=== PATIENT | male | born 1995 | race Caucasian/White ===

== ENCOUNTER → 2019-04-02 13:08 | Outpatient (BNVA) | payer MEDICAID, SELFPAY | PROVIDERS: PCP Family Medicine; Visit Provider Nurse Practitioner | DX: F31.73 Bipolar disorder, in partial remission, most recent episode manic (principal) | CPT/HCPCS: 99213 ==

== ENCOUNTER 2019-04-13 15:07 | Emergency (ER) | payer MEDICAID, SELFPAY ==
[2019-04-13 15:09] VITALS: BP 129/79; PULSE 68; RESP 16; TEMP 36.6; O2SAT 97; BMI 26.1
--- NOTE | 2019-04-13 15:37 | XR_ITS ---
WS: [id number] XR facial bones <3V 66576 REASON FOR EXAM: trauma FINDINGS: The orbits are normal there is no fractures of the rims of the orbits. The zygoma zygomatic arches are normal. In the lateral projection the mandible appears to be normal. The frontal region of the skull appear to be normal. No air-fluid levels in the paranasal sinuses. XR/XR facial bones <3V 49364 IMPRESSION: Negative facial bones for fractures.
--- NOTE | 2019-04-13 15:37 | XR_ITS ---
WS: [id number] XR skull <4V 25657 REASON FOR EXAM: trauma FINDINGS: The pineal gland is calcified in seen in normal position. The outer and inner tables of the skull are intact. No fractures are seen in the skull area. XR/XR skull <4V 65854 IMPRESSION: Negative skull for fractures.
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
[2019-04-13 15:40] VITALS: O2SAT 97
--- NOTE | 2019-04-13 16:11 | PC.NURSE ---
pt back to room from CT with stretcher by tech
[2019-04-13 17:33] VITALS: BP 129/73; PULSE 109; RESP 19; O2SAT 94
[2019-04-13 17:47] VITALS: BP 123/78; PULSE 76; RESP 16; O2SAT 98
== END 2019-04-13 17:35 | disposition home or self-care (01) ==
PROVIDERS: Emergency Provider Nurse Practitioner Family
DX: S01.101A Unspecified open wound of right eyelid and periocular area, initial encounter (principal); F84.0 Autistic disorder; X58.XXXA Exposure to other specified factors, initial encounter
CPT/HCPCS: 12013; 70140; 70250; 99283

== ENCOUNTER → 2019-07-23 08:11 | Outpatient (BNVA) | payer MEDICAID, SELFPAY | PROVIDERS: Visit Provider Nurse Practitioner | DX: F31.73 Bipolar disorder, in partial remission, most recent episode manic (principal) | CPT/HCPCS: 99213 ==

== ENCOUNTER → 2020-01-18 07:34 | Outpatient (BNVA) | payer MEDICAID, SELFPAY | PROVIDERS: Visit Provider Nurse Practitioner | DX: F31.73 Bipolar disorder, in partial remission, most recent episode manic (principal) | CPT/HCPCS: 99214 ==

== ENCOUNTER → 2020-07-18 07:35 | Outpatient (BNVA) | payer MEDICAID, SELFPAY | PROVIDERS: Visit Provider Nurse Practitioner | DX: F31.73 Bipolar disorder, in partial remission, most recent episode manic (principal) | CPT/HCPCS: 99214 ==

== ENCOUNTER → 2020-07-31 11:22 | Outpatient (BNVA) | payer MEDICAID, SELFPAY | PROVIDERS: Visit Provider Nurse Practitioner | DX: F84.0 Autistic disorder (principal) | CPT/HCPCS: 99215 ==

== ENCOUNTER → 2020-08-07 08:14 | Outpatient (BNVA) | payer MEDICAID, SELFPAY | PROVIDERS: Visit Provider Nurse Practitioner | DX: F84.0 Autistic disorder (principal) | CPT/HCPCS: 80053; 81003; 85025; 99214 ==

== ENCOUNTER → 2020-08-21 07:07 | Outpatient (BNVA) | payer MEDICAID, SELFPAY | PROVIDERS: Visit Provider Nurse Practitioner | DX: F31.73 Bipolar disorder, in partial remission, most recent episode manic (principal); F84.0 Autistic disorder | CPT/HCPCS: 99214 ==

== ENCOUNTER 2020-09-01 07:55 | Outpatient (CLI) | payer MEDICAID, SELFPAY ==
[2020-09-01 09:20] LABS: Valproic Acid Level 44.6 ug/mL (50-100)
== END 2020-09-01 07:56 | disposition home or self-care (01) ==
PROVIDERS: Nurse Practitioner; PCP Nurse Practitioner; Visit Provider Psychiatry & Neurology Psychiatry
DX: F31.73 Bipolar disorder, in partial remission, most recent episode manic (principal)
CPT/HCPCS: 36415; 80164

== ENCOUNTER → 2020-09-20 07:02 | Outpatient (BNVA) | payer MEDICAID, SELFPAY | PROVIDERS: PCP Nurse Practitioner; Visit Provider Nurse Practitioner | DX: F31.73 Bipolar disorder, in partial remission, most recent episode manic (principal); F84.0 Autistic disorder | CPT/HCPCS: 99214 ==

== ENCOUNTER 2021-04-04 21:11 | Emergency (ER) | payer MEDICAID, SELFPAY ==
[2021-04-04 21:18] VITALS: BP 132/83; PULSE 115; RESP 20; TEMP 36.7; O2SAT 99; BMI 27.0
--- NOTE | 2021-04-04 21:23 | ED_ITS ---
HPI - Skin/Abscess/Foreign Bdy General: Chief complaint: Skin/Abscess/Foreign Body Stated complaint: lump on L arm Time Seen by Provider: 04/04/21 21:23 History of Present Illness: 26-year-old male patient comes in today with complaints redness to the left upper arm. Patient had been hospitalized last week and has had IVs and restraints to the extremity. Today caregivers noted some redness and tenderness to the left upper arm. They were concerned there may be an abscess there. Patient was placed on Cipro due to some blood being in his urine yesterday. The redness was not noted to the upper arm until today. Caregivers report no fever. Patient does not add anything to history due to his condition. Review of Systems General: Reports: 10 or more systems reviewed and unremarkable except in HPI and below Skin/Breast: Reports: erythema PFSH ED PFSH: Medical History (Updated 04/04/21 @ 21:45 by NOLBERTO De La Cruz) Autism Bipolar disorder, in partial remission, most recent episode manic Eustachian tube dysfunction GERD (gastroesophageal reflux disease) Nonverbal UTI (urinary tract infection) Social History Smoking and tobacco status: never smoked Alcohol intake: never Caregiver/support person: Yes Lives independently: No Household members: family Marital status: Single Number of children: 0 Number of grandchildren: 0 service: No Current occupational status: disabled Physical Exam Const: COMMON NORMALS: alert HENMT: COMMON NORMALS: atraumatic HEAD & SCALP: atraumatic Resp: COMMON NORMALS: normal respiratory effort Cardio: COMMON NORMALS: regular rate and regular rhythm RATE: regular rate RHYTHM: regular rhythm Extremity: LEFT UPPER EXTREMITY: Yes upper arm (Large area of redness about 11 cm, with some central induration) Left upper arm: Yes inspection, Yes palpation and Yes neurovascular exam Neuro: SENSORIUM/ORIENTATION: Yes alert Psych: COMMON NORMALS: cooperative Skin: NARRATIVE SKIN EXAM: Patient has an area of erythema to the left upper arm about 11 cm ovoid in shape. Central in the area of redness there is a 4 cm area of induration. No fluctuance is noted in the tissue. RASHES: rashes noted (Left upper arm) Course Vital Signs: Vital signs: Vital Signs Temperature 98.1 F 02/23/22 21:18 Pulse Rate 115 H 04/04/21 21:18 Respiratory Rate 20 H 04/04/21 21:18 Blood Pressure 132/83 04/04/21 21:18 Pulse Oximetry 99 04/04/21 21:18 MDM - Skin/Abscess/Foreign Bdy Medicial Decision Making 26-year-old male patient comes in for redness and erythema to the left upper extremity. Patient had been in the hospital last week for altered mental status and was found to have an adverse drug reaction to some valproic acid that had caused some liver abnormalities and elevated ammonia. Medications were stopped and patient seemed to be doing a lot better and has been discharged to home. Family had noted some increased redness to the left upper extremity. On exam we note erythema and some central induration. Differential diagnosis includes a thrombophlebitis, cellulitis, abscess. Ultrasound of the extremity suggested some edema in the area of redness with no collection of fluid suggesting abscess at this time. Patient was on Cipro for some concerns of blood in the urine. We will stop the Cipro and put patient on clindamycin 300 mg 4 times a day for the next 7 days. Patient was also given 1 g of Rocephin in the ER. Caregivers reported understanding of plan and need for follow-up or return to the ER. Discharge Plan Discharge Patient Disposition: Home Clinical Impression: Cellulitis Condition: Stable Prescriptions: New clindamycin HCl 300 mg capsule 300 mg PO Q6H 7 Days Qty: 28 0RF No Action Equetro 300 mg capsule, ER multiphase 12 hr 300 mg PO DAILY 0RF Rx Instructions: Dispense brand name Equetro benztropine 1 mg tablet 1 mg PO TID 0RF chlorpromazine 100 mg tablet See Rx Instructions PO TID 0RF Rx Instructions: 1 tablet in the morning; 1 tablet at 2pm, and 1.5 tablet at night. clonidine HCl 0.1 mg tablet 0.1 mg PO .q6hour 0RF ciprofloxacin HCl 750 mg tablet 750 mg PO BID Qty: 20 0RF cetirizine-pseudoephedrine 5-120 mg tablet extended release 12 hr 1 tab PO BID Qty: 60 5RF omeprazole 20 mg capsule,delayed release(DR/EC) 20 mg PO BID Qty: 60 5RF clonazepam 0.5 mg tablet 0.5 mg PO BID Qty: 60 5RF Discharge Orders: Discharge ED (Routine); Ordered 04/04/21 Ordered By: Terrance Dawson Referrals: Lico Nichols MD [Primary Care Provider] - Discharge Diet: Usual diet Discharge Activity: Increase activity as tolerated Patient Instructions: Cellulitis (ED) Activity Restrictions/Additional Instructions: Antibiotics as directed. Monitor for fever greater than 100.4, Encourage plenty of fluids with medications. 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
--- NOTE | 2021-04-04 21:33 | USR_ITS ---
PROCEDURE INFORMATION: Exam: US Left Non-Vascular Joint or Other Extremity Structure Exam date and time: 04/04/2021 9:33 PM Age: 26 years old Clinical indication: Mass or lump and swelling; Arm, upper; Left; Additional info: Left upper arm, rule out abscess TECHNIQUE: Imaging protocol: Left US joint or other nonvascular extremity structure or structures. Real-time ultrasound with image documentation. Limited study. Exam focused on the upper extremity in the region of clinical interest. COMPARISON: No relevant prior studies available. FINDINGS: Soft tissues: Subcutaneous soft tissue edema. No focal organized fluid collection seen. US/US soft tissue/extremity 13075 IMPRESSION: Soft tissue edema changes without focal drainable abscess seen.
[2021-04-04] MEDS: clindamycin 150 mg Capsule 300 MG PO (22:32)
[2021-04-04] MEDS: cefTRIAXone 1,000 mg SDV 1000 MG IM (22:32)
[2021-04-04] MEDS: lidocaine 1% INJ 20 mL 2.1 ML INJECTION (22:33)
[2021-04-04 22:38] VITALS: BP 129/79; PULSE 105; RESP 18; TEMP 36.7; O2SAT 99
== END 2021-04-04 22:41 | disposition home or self-care (01) ==
PROVIDERS: Emergency Provider Nurse Practitioner Family; PCP Family Medicine Adult Medicine
DX: L03.114 Cellulitis of left upper limb (principal); F84.0 Autistic disorder
CPT/HCPCS: 76882; 96372; 99283; J0696

== ENCOUNTER 2021-04-12 13:17 | Outpatient (CLI) | payer MEDICAID, SELFPAY ==
[2021-04-12 14:22] LABS: Ammonia 53 umol/L (16-60)
[2021-04-12 14:38] LABS: Lithium 0.9 mmol/L (0.6-1.2)
== END 2021-04-12 13:18 | disposition home or self-care (01) ==
LOC: LAB 13:19
PROVIDERS: PCP Family Medicine Adult Medicine; Visit Provider Family Medicine Adult Medicine
DX: Z13.6 Encounter for screening for cardiovascular disorders (principal); N39.0 Urinary tract infection, site not specified; F31.73 Bipolar disorder, in partial remission, most recent episode manic; F84.0 Autistic disorder
CPT/HCPCS: 80178; 82140

== ENCOUNTER 2021-05-04 09:00 | Outpatient (CLI) | payer MEDICAID, SELFPAY ==
[2021-05-04 09:36] LABS: Basophils % 0.8 %; Eosinophils # 0.1 10^3/uL (0.0-0.8); Eosinophils % 2.6 %; Hematocrit 45.1 % (42.0-52.0); Hemoglobin 14.7 g/dL (11.7-16.6); Lymphocytes # 1.5 10^3/uL (0.8-4.8); Lymphocytes % 29.8 %; Mean Corpuscular HGB Conc 32.6 g/dL (30.0-36.0); Mean Corpuscular Hemoglobin 29.9 pg (28.0-34.0); Mean Corpuscular Volume 91.9 fl (80-94); Mean Platelet Volume 9.7 fL (7.4-10.4); Monocytes # 0.6 10^3/uL (0.2-0.9); Monocytes % 12.2 %; Neutrophils # 2.71 10^3/uL (1.8-7.7); Neutrophils % 54.2 %; Nucleated Red Blood Cells % 0 %; Platelet Count 210 10^3/cmm (130-400); Red Blood Count 4.91 10^6/uL (4.1-5.3); Red Cell Distribution Width 13.2 % (12.1-15.1)
[2021-05-04 09:53] LABS: Ammonia 42 umol/L (16-60)
[2021-05-04 09:56] LABS: Lithium 0.5 mmol/L (0.6-1.2)
[2021-05-04 10:07] LABS: Alanine Aminotransferase 26 U/L (0-41); Albumin Level 4.5 g/dL (3.5-5.2); Alkaline Phosphatase 66 IU/L (40-130); Aspartate Amino Transferase 21 U/L (0-40); Blood Urea Nitrogen 8 mg/dL (6-20); Calcium 9.4 mg/dL (8.5-10.5); Carbon Dioxide 25 mmol/L (22-29); Chloride 104 mmol/L (98-107); Globulin 2.9 g/dL (1.3-4.6); Glomerular Filtration Rate 199.5 mL/min (90-130); Glucose 94 mg/dL (65-115); Osmolality Calculated 286 mOsm/kg (285-295); Sodium 139 mmol/L (136-145); Thyroid Stimulating Hormone 1.61 uIU/mL (0.27-4.20); Total Bilirubin 0.2 mg/dL (0.15-1.2); Total Protein 7.4 g/dL (6.6-8.7)
== END 2021-05-04 09:01 | disposition home or self-care (01) ==
LOC: LAB 09:01
PROVIDERS: PCP Family Medicine Adult Medicine; Visit Provider Family Medicine Adult Medicine
DX: Z79.899 Other long term (current) drug therapy (principal)
CPT/HCPCS: 36415; 80053; 80178; 82140; 84443; 85025

== ENCOUNTER 2021-07-10 08:55 | Outpatient (CLI) | payer MEDICAID, SELFPAY ==
[2021-07-10 09:53] LABS: Ammonia 37 umol/L (16-60)
[2021-07-10 10:03] LABS: Alanine Aminotransferase 27 U/L (0-41); Albumin Level 4.7 g/dL (3.5-5.2); Alkaline Phosphatase 67 IU/L (40-130); Aspartate Amino Transferase 19 U/L (0-40); Blood Urea Nitrogen 10 mg/dL (6-20); Calcium 9.4 mg/dL (8.5-10.5); Carbon Dioxide 24 mmol/L (22-29); Chloride 104 mmol/L (98-107); Chol HDL Ratio 4.24 mg/dL (1.0-5.00); Cholesterol 174 mg/dL (0-200); Globulin 2.6 g/dL (1.3-4.6); Glomerular Filtration Rate 161.6 mL/min (90-130); Glucose 93 mg/dL (65-115); HDL Cholesterol 41 mg/dL (60-100); LDL Cholesterol Calculated 56 mg/dL (50-129); LDL HDL Ratio 1.37 RATIO (0.00-3.22); Osmolality Calculated 283 mOsm/kg (285-295); Sodium 137 mmol/L (136-145); Thyroid Stimulating Hormone 2.79 uIU/mL (0.27-4.20); Total Bilirubin 0.2 mg/dL (0.15-1.2); Total Protein 7.3 g/dL (6.6-8.7); Triglycerides 384 mg/dL (0-150)
[2021-07-10 10:07] LABS: Anion Gap 12.8 (5-19); Potassium 3.8 mmol/L (3.5-5.1)
[2021-07-10 13:01] LABS: Lithium 0.8 mmol/L (0.6-1.2)
== END 2021-07-10 08:56 | disposition home or self-care (01) ==
PROVIDERS: PCP Family Medicine Adult Medicine; Visit Provider Psychiatry & Neurology Psychiatry
DX: Z79.899 Other long term (current) drug therapy (principal)
CPT/HCPCS: 36415; 80053; 80061; 80178; 82140; 84443

== ENCOUNTER 2021-08-01 11:22 | Emergency (ER) | payer MEDICAID, SELFPAY ==
[2021-08-01 11:36] VITALS: BP 136/85; PULSE 72; RESP 12; TEMP 36.4; O2SAT 98
--- NOTE | 2021-08-01 13:03 | CT_ITS ---
WS: [id number] CT ABDOMEN PELVIS TECHNIQUE: Noncontrast CT of the abdomen and pelvis with coronal and sagittal reformatted images. CLINICAL INFORMATION: abd pain COMPARISON: None. DLP: 1854.[address] scans at [facility] use at least one of these dose optimization techniques: automated e xposure control; mA and/or kV adjustment per patient size (includes targeted exams where dose is matc hed to clinical indication); or iterative reconstruction. 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 Cecum within the RIGHT lower quadrant. Markedly distended sigmoid colon flipped up into the LEFT upper quadrant above the transverse colon w ith gaseous distention. Sigmoid colon measures 8.5 cm in maximum dimension. Transition point in the L EFT pelvis adjacent to the bladder suspicious for sigmoid volvulus.Fecal retention in the ascending, distal transverse and descending colon consistent with moderate constipation. No free air or pneumato sis. Normal GE junction. Food products within the stomach. Air-fluid level within the stomach. Slight ate lectasis in the lung bases. Noncontrast liver is normal. Normal noncontrast spleen. Adrenal glands ar e normal. Noncontrast pancreas is normal. No hydronephrosis in either kidney. Pelvic phleboliths. Uri ne distended bladder. Tiny fat-containing umbilical hernia. No free fluid in the abdomen or pelvis. CT/CT abdomen pelvis con [id number] IMPRESSION: 1. Markedly distended tortuous sigmoid colon with gaseous distention extending into the LEFT upper quadrant. Transition point suspicious for volvulus in the pelvis adjacent to the bladder axial series 2 image 70 and coronal series 602 i mage 40 through 46 2. Moderate constipation involving the RIGHT ascending colon, distal transvers e colon, and LEFT colon. 3. Majority of the small bowel within the RIGHT abdomen compatible with congen ital malrotation. Cecum within the RIGHT lower quadrant. 4. Urine distended bladder. 5. No free air or pneumatosis. 6. Distended stomach with air-fluid level and food products. Notified Merlin Cruz MD at 08/01/2021 2:27 PM.
--- NOTE | 2021-08-01 13:07 | ED_ITS ---
HPI - General Adult General: Chief complaint: Abdominal Pain Stated complaint: abd pain Time Seen by Provider: 08/01/21 12:55 History of Present Illness: Patient is a 26-year-old male with history intellectual disability nonverbal at baseline who presents to the emergency room for concerns of abdominal pain. For the last 3 weeks, patient was observed to be clutching her belly grimacing in pain and increasingly more agitated. Earlier today patient was at school when he was screaming clutching his belly and pain. EMS was called and patient was brought to the emergency room. Per family, the episode was not witnessed. Family denies that the patient has had any fever or vomiting. Family reports that patient has been having loose stools in the last few weeks. Patient has not had a prior abdominal surgery, no urinary symptoms. Patient has been able to tolerate p.o. without any difficulty. Patient's sister and family in law reports that patient has received laxative in the last few weeks and is concerned that this may be affecting patient's upset stomach. Onset: 3 weeks ago Duration: 3 weeks Location:home Severity:moderate Associated symptoms: Deny vomiting Review of Systems General: Reports: ROS unobtainable due to medical condition GI: Reports: abdominal pain (+grimacing and clutching the abdomen); Denies: vomiting Neuro: Reports: other (+increased agitation per family) [facility] ED PFSH: Medical History Autism Bipolar disorder, in partial remission, most recent episode manic Eustachian tube dysfunction GERD (gastroesophageal reflux disease) Hypertension Nonverbal UTI (urinary tract infection) Social History Smoking and tobacco status: never smoked Alcohol intake: never Caregiver/support person: Yes Lives independently: No Household members: family Marital status: Single Number of children: 0 Number of grandchildren: 0 service: No Current occupational status: disabled Physical Exam Const: COMMON NORMALS: alert HENMT: COMMON NORMALS: atraumatic HEAD & SCALP: atraumatic MOUTH: moist mucous membranes not abnormal Eye: COMMON NORMALS: EOMs intact bilaterally and conjunctivae normal CONJ UNCTIVA: Yes conjunctivae normal Neck/C-Spine: COMMON NORMALS: full ROM and supple Resp: COMMON NORMALS: normal respiratory effort and clear to auscultation bilaterally AUSCULTATION: clear to auscultation bilaterally Cardio: COMMON NORMALS: regular rate RATE: regular rate GI: COMMON NORMALS: Soft to palpation and non-tender PALPATION: Yes Soft to palpation OTHER: No focal TTP. NO guarding rebound, guarding, rigidity. No CVA tenderness to percussion. Neg Lopes/Neg McBurney's point tenderness, no suprabupic tenderness to palpation. Extremity: COMMON NORMALS: full ROM Neuro: SENSORIUM/ORIENTATION: Yes alert OTHER: + Moving all extremities Psych: OTHER: +unable to assess due to baseline nonverbal and medical condition Course Vital Signs: Vital signs: Vital Signs Temperature 97.6 F 08/01/21 11:36 Pulse Rate 79 08/01/21 13:25 Respiratory Rate 16 08/01/21 13:25 Blood Pressure 161/102 08/01/21 13:25 Pulse Oximetry 99 08/01/21 13:25 MDM - General Adult Medical Decision Making 26-year-old male with a history of intellectual disability, nonverbal at baseline presenting to the emergency room for concerns of abdominal pain with facial grimacing and clutching of abdomen when this earlier today at school. On physical exam, patient is in no additional acute distress currently. No focal abdominal tenderness palpation. Lab work-up is within normal limit. No leukocytosis. Lactic within normal limit. CT of pelvis did constipation with voluvulus. I discussed case with Dr. Godinez who tells me he normally does not normally perform detorsion of the sigmoid volvulus. Dr. Vick and I discussed case with patient's family at bedside. At the present time, they would like colorectal surgery to weigh in on this discussion and they prefer to be transferred to another facility. We discussed that this is a time sensitive diagnosis which requires immediate intervention, but patient elects for a second option with a colorectal surgeon. Patient received cefepime and metronidazole given allergies to peniclllin and IVF. Case was discussed with Dr. Michaels from [place] who agreed with the transfer to [facility] for further management of possible volvulus. Disposition: Transfer to outside hospital Lab Data : 08/01/21 13:20 08/01/21 13:20 Radiology Impressions Abdomen/Pelvis CT 08/01/21 13:03 IMPRESSION: 1. Markedly distended tortuous sigmoid colon with gaseous distention extending into the LEFT upper quadrant. Transition point suspicious for volvulus in the pelvis adjacent to the bladder axial series 2 image 70 and coronal series 602 image 40 through 46 2. Moderate constipation involving the RIGHT ascending colon, distal transverse colon, and LEFT colon. 3. Majority of the small bowel within the RIGHT abdomen compatible with congenital malrotation. Cecum within the RIGHT lower quadrant. 4. Urine distended bladder. 5. No free air or pneumatosis. 6. Distended stomach with air-fluid level and food products. Notified Merlin Cruz MD at 08/01/2021 2:27 PM. Laboratory Results WBC 5.7 10^3/uL (4.0-10.0) 08/01/21 13:20 RBC 5.41 10^6/uL (4.1-5.3) H 08/01/21 13:20 Hgb 15.6 g/dL (11.7-16.6) 08/01/21 13:20 Hct 47.9 % (42.0-52.0) 08/01/21 13:20 MCV 88.5 fl (80-94) 08/01/21 13:20 MCH 28.8 pg (28.0-34.0) 08/01/21 13:20 MCHC 32.6 g/dL (30.0-36.0) 08/01/21 13:20 RDW 12.5 % (12.1-15.1) 08/01/21 13:20 Plt Count 202 10^3/cmm (130-400) 08/01/21 13:20 MPV 10.3 fL (7.4-10.4) 08/01/21 13:20 Neut % (Auto) 60.7 % 08/01/21 13:20 Lymph % (Auto) 25.8 % 08/01/21 13:20 Sunflower % (Auto) 10.8 % 08/01/21 13:20 Eos % (Auto) 1.6 % 08/01/21 13:20 Baso % (Auto) 0.7 % 08/01/21 13:20 Neut # (Auto) 3.43 10^3/uL (1.8-7.7) 08/01/21 13:20 Lymph # (Auto) 1.5 10^3/uL (0.8-4.8) 08/01/21 13:20 Sunflower # (Auto) 0.6 10^3/uL (0.2-0.9) 08/01/21 13:20 Eos # (Auto) 0.1 10^3/uL (0.0-0.8) 08/01/21 13:20 Baso # (Auto) 0.0 10^3/uL (0.0-0.1) 08/01/21 13:20 Nucleated RBC % (auto) 0 % 08/01/21 13:20 Nucleated RBCs # 0.0 /100WBC 08/01/21 13:20 Sodium 132 mmol/L (136-145) L 08/01/21 13:20 Potassium 4.0 mmol/L (3.5-5.1) 08/01/21 13:20 Chloride 101 mmol/L (98-107) 08/01/21 13:20 Carbon Dioxide 22 mmol/L (22-29) 08/01/21 13:20 Anion Gap 13.0 (5-19) 08/01/21 13:20 BUN 11 mg/dL (6-20) 08/01/21 13:20 Creatinine 0.6 mg/dL (0.7-1.2) L 08/01/21 13:20 GFR Calculation 161.6 mL/min (90-130) H 08/01/21 13:20 Glucose 98 mg/dL (65-115) 08/01/21 13:20 Calculated Osmolality 273 mOsm/kg (285-295) L 08/01/21 13:20 Lactate 1.9 mmol/L (0.5-2.2) 08/01/21 13:20 Calcium 9.1 mg/dL (8.5-10.5) 08/01/21 13:20 Total Bilirubin 0.2 mg/dL (0.15-1.2) 08/01/21 13:20 AST 17 U/L (0-40) 08/01/21 13:20 ALT 21 U/L (0-41) 08/01/21 13:20 Alkaline Phosphatase 67 IU/L (40-130) 08/01/21 13:20 Total Protein 7.5 g/dL (6.6-8.7) 08/01/21 13:20 Albumin 4.7 g/dL (3.5-5.2) 08/01/21 13:20 Globulin 2.8 g/dL (1.3-4.6) 08/01/21 13:20 Lipase 35 U/L (13-60) 08/01/21 13:20 Urine Color Yellow (Yellow) 08/01/21 13:57 Urine Appearance Clear (CLEAR) 08/01/21 13:57 Urine pH 7 (5-7) 08/01/21 13:57 Ur Specific [place] 1.000 (1.005-1.030) L 08/01/21 13:57 Urine Protein Neg (Negative) 08/01/21 13:57 Urine Glucose (UA) Norm (Normal) 08/01/21 13:57 Urine Ketones Negative (Negative) 08/01/21 13:57 Urine Blood Neg (Negative) 08/01/21 13:57 Urine Nitrate Negative (Negative) 08/01/21 13:57 Urine Bilirubin Neg (Negative) 08/01/21 13:57 Urine Urobilinogen Norm mg/dL (Negative) 08/01/21 13:57 Ur Leukocyte Esterase Negative (Negative) 08/01/21 13:57 Imaging Data Other Imaging: Radiologist's impression: [place] [address] CT Scan Report Signed Patient: Philip Trotter Unit #: [id number] : 1995 Age/Sex: 26 / M ADM Date: 08/01/21 Loc: ER Room/Bed: Attending Dr: Ordering Provider/Ordering MD: Merlin Cruz MD Date of Service: 08/01/21 Procedure(s): CT abdomen pelvis con [id number] Accession Number(s): [id number] Report Number: [id number] WS: [id number] CT ABDOMEN PELVIS TECHNIQUE: Noncontrast CT of the abdomen and pelvis with coronal and sagittal reformatted images. CLINICAL INFORMATION: abd pain COMPARISON: None. DLP: 1854.[address] [facility] use at least one of these dose optimization techniques: automated exposure control; mA and/or kV adjustment per patient size (includes targeted exams where dose is matched to clinical indication); or iterative reconstruction. 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 Cecum within the RIGHT lower quadrant. Markedly distended sigmoid colon flipped up into the LEFT upper quadrant above the transverse colon with gaseous distention. Sigmoid colon measures 8.5 cm in maximum dimension. Transition point in the LEFT pelvis adjacent to the bladder suspicious for sigmoid volvulus.Fecal retention in the ascending, distal transverse and descending colon consistent with moderate constipation. No free air or pneumatosis. Normal GE junction. Food products within the stomach. Air-fluid level within the stomach.? Slight atelectasis in the lung bases. Noncontrast liver is normal. Normal noncontrast spleen. Adrenal glands are normal. Noncontrast pancreas is normal. No hydronephrosis in either kidney. Pelvic phleboliths. Urine distended bladder. Tiny fat-containing umbilical hernia. No free fluid in the abdomen or pelvis. CT/CT abdomen pelvis wo con [id number] IMPRESSION: ? 1.? Markedly distended tortuous sigmoid colon with gaseous distention extending into the LEFT upper quadrant. Transition point suspicious for volvulus in the pelvis adjacent to the bladder axial series 2 image 70 and coronal series 602 image 40 through 46 2.? Moderate constipation involving the RIGHT ascending colon, distal transverse colon, and LEFT colon. 3.? Majority of the small bowel within the RIGHT abdomen compatible with congenital malrotation. Cecum within the RIGHT lower quadrant. 4.? Urine distended bladder. 5.? No free air or pneumatosis. 6.? Distended stomach with air-fluid level and food products. ? Notified Merlin Cruz MD at 08/01/2021 2:27 PM. ? ? Dictated By: James Gomes MD Signed By: James Gomes MD Signed Date/Time: 08/01/21 1430 DD/ 1401 Discharge Plan Discharge Patient Disposition: Transfer to ED Clinical Impression: Abdominal pain, Constipation, Sigmoid volvulus Condition: Stable Prescriptions: New acetaminophen 500 mg tablet 500 mg PO Q6H PRN (Reason: pain) 5 Days Qty: 20 0RF Pepcid 20 mg tablet 20 mg PO BID PRN (Reason: abdominal pain) 10 Days Qty: 20 0RF Maalox Advanced 1,000-60 mg tablet,chewable 1 tab PO TID PRN (Reason: abdominal pain) 7 Days Qty: 21 0RF No Action cetirizine-pseudoephedrine 5-120 mg tablet extended release 12 hr 1 tab PO BID Qty: 60 5RF lithium carbonate 300 mg tablet 300 mg PO TID 30 Days Qty: 90 0RF chlorpromazine 100 mg tablet See Rx Instructions PO TID Qty: 105 1RF Rx Instructions: 1 tablet in the morning; 1 tablet at 2pm, and 1.5 tablet at night. PO three times daily; Vitamin D3 50 mcg (2,000 unit) Capsule 50 mcg PO .2 TIMES A WEEK 0RF Equetro 200 mg Capsule, Er Multiphase 12 Hr 200 mg PO BID 0RF clonidine HCl 0.1 mg tablet 0.3 mg PO TID PRN (Reason: hypertensive emergency) 0RF omeprazole 20 mg capsule,delayed release(DR/EC) 20 mg PO DAILY 0RF Discharge Diet: Advance as tolerated Discharge Activity: Increase activity as tolerated Patient Instructions: Abdominal Pain (ED) Activity Restrictions/Additional Instructions: Please come back if you have any worsening abdominal pain, fever or chills, nausea or vomiting, diarrhea, blood in the stool, inability hold down liquid or solids, or any new concerning complaints. 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
[2021-08-01] MEDS: lidocaine 2% viscous 15 ML, aluminum-mag hydrox-simethicon 30 ML, sucralfate oral liq 1 GM PO (13:20)
[2021-08-01 13:25] VITALS: BP 161/102; PULSE 79; RESP 16; O2SAT 99
[2021-08-01 13:36] LABS: Basophils % 0.7 %; Eosinophils # 0.1 10^3/uL (0.0-0.8); Eosinophils % 1.6 %; Hematocrit 47.9 % (42.0-52.0); Hemoglobin 15.6 g/dL (11.7-16.6); Lymphocytes # 1.5 10^3/uL (0.8-4.8); Lymphocytes % 25.8 %; Mean Corpuscular HGB Conc 32.6 g/dL (30.0-36.0); Mean Corpuscular Hemoglobin 28.8 pg (28.0-34.0); Mean Corpuscular Volume 88.5 fl (80-94); Mean Platelet Volume 10.3 fL (7.4-10.4); Monocytes # 0.6 10^3/uL (0.2-0.9); Monocytes % 10.8 %; Neutrophils # 3.43 10^3/uL (1.8-7.7); Neutrophils % 60.7 %; Nucleated Red Blood Cells % 0 %; Platelet Count 202 10^3/cmm (130-400); Red Blood Count 5.41 10^6/uL (4.1-5.3); Red Cell Distribution Width 12.5 % (12.1-15.1); White Blood Count 5.7 10^3/uL (4.0-10.0)
[2021-08-01 14:00] LABS: Add Urine Microscopic? NO; Charge for UA Resulting for Rev
[2021-08-01 14:01] LABS: Lactate (Lactic Acid level) 1.9 mmol/L (0.5-2.2)
[2021-08-01 14:02] LABS: Alanine Aminotransferase 21 U/L (0-41); Albumin Level 4.7 g/dL (3.5-5.2); Alkaline Phosphatase 67 IU/L (40-130); Aspartate Amino Transferase 17 U/L (0-40); Blood Urea Nitrogen 11 mg/dL (6-20); Calcium 9.1 mg/dL (8.5-10.5); Carbon Dioxide 22 mmol/L (22-29); Chloride 101 mmol/L (98-107); Globulin 2.8 g/dL (1.3-4.6); Glomerular Filtration Rate 161.6 mL/min (90-130); Glucose 98 mg/dL (65-115); Lipase 35 U/L (13-60); Osmolality Calculated 273 mOsm/kg (285-295); Sodium 132 mmol/L (136-145); Total Bilirubin 0.2 mg/dL (0.15-1.2); Total Protein 7.5 g/dL (6.6-8.7)
[2021-08-01 14:07] LABS: Bilirubin Urine Neg (Negative); Blood Urine Neg (Negative); Glucose Urine UA Norm (Normal); Ketones Urine Negative (Negative); Leukocyte Esterase Urine Negative (Negative); Nitrate Urine Negative (Negative); Protein Urine Neg (Negative); Urine Appearance Clear (CLEAR); Urine Color Yellow (Yellow); Urobilinogen Urine Norm (Negative); pH Urine 7 (5-7)
--- NOTE | 2021-08-01 15:25 | PM.CONSULT ---
Providers/Reason For Consult Consulting Physician/Specialty*: Benjie Vick MD Reason for Consult*: Concerning for sigmoid colon volvulus Requesting Physician: Dr. Cruz History of Present Illness History of Present Illness Mr. Philip Trotter is a 26 year old male with well-known history of nonverbal autism yet appears that per family that the patient is functional and he goes to school but for the past few months he has been very agitated but nothing seems to be abrupt today yet his sister seems to be concerned about him and she had to bring him to the ER for further evaluation, patient undergone blood work that showed WBC count of 5.7, hemoglobin 15.6, platelet count 202, in addition to sodium 132, potassium 4, creatinine 1.6 and lactic acid of 1.9. CT of the abdomen pelvis was done without contrast that did show 1.? Markedly distended tortuous sigmoid colon with gaseous distention extending into the LEFT upper quadrant. Transition point suspicious for volvulus in the pelvis adjacent to the bladder axial series 2 image 70 and coronal series 602 image 40 through 46 2.? Moderate constipation involving the RIGHT ascending colon, distal transverse colon, and LEFT colon. 3.? Majority of the small bowel within the RIGHT abdomen compatible with congenital malrotation. Cecum within the RIGHT lower quadrant. 4.? Urine distended bladder. 5.? No free air or pneumatosis. 6.? Distended stomach with air-fluid level and food products. GI service was consulted for potential attempt to flex sigmoidoscopy but did not feel comfortable derotating the colon and subsequently general surgery was consulted. Patient was seen and evaluated in the ER. Patient's sister reports that her brother had 2 colonoscopies back in March in [facility] and was reported as normal except for gas pockets per her description. Fortunately I do not have any available reports Review of Systems General: Reports: ROS unobtainable due to medical condition Medications/Allergies Home Medications Medication Instructions Recorded Confirmed Last Taken Type cetirizine 5 mg-pseudoephedrine ER 1 tab PO BID #60 tab 12/21/20 04/06/21 Unknown Rx 120 mg tablet,extended release,12hr clonazepam 0.5 mg tablet 0.5 mg PO BID #60 tab 01/29/21 04/06/21 Unknown Rx benztropine 1 mg tablet 1 mg PO TID tab 04/03/21 04/06/21 Unknown History carbamazepine (mood stabiliz) 300 300 mg PO DAILY cap 04/03/21 04/06/21 Unknown History mg capsule,extend release 12 hr(mood stabilizing) (Equetro) ciprofloxacin HCl 750 mg tablet 750 mg PO BID #20 tab 04/03/21 04/06/21 Unknown Rx chlorpromazine 100 mg tablet See Rx Instructions PO TID #105 tab 05/08/21 Unknown Rx clonidine HCl 0.1 mg tablet 0.1 mg PO .q6hour PRN #120 tab 05/08/21 Unknown Rx lithium carbonate 300 mg tablet 300 mg PO TID 30 Days #90 tab 05/08/21 Unknown Rx omeprazole 20 mg capsule,delayed 20 mg PO BID #60 cap 05/08/21 Unknown Rx release acetaminophen 500 mg tablet 500 mg PO Q6H PRN 5 Days #20 tab 08/01/21 Unknown Rx calcium carbonate 1,000 1 tab PO TID PRN 7 Days #21 tab 08/01/21 Unknown Rx mg-simethicone 60 mg chewable tablet (Maalox Advanced) famotidine 20 mg tablet (Pepcid) 20 mg PO BID PRN 10 Days #20 tab 08/01/21 Unknown Rx Allergies Allergy/AdvReac Type Severity Reaction Status Date / Time mold Allergy Mild ALGY-Conges Verified 08/01/21 15:27 andrew Penicillins Allergy Unknown Verified 08/01/21 15:27 PFSH Acute PFSH: Medical History Autism Bipolar disorder, in partial remission, most recent episode manic Eustachian tube dysfunction GERD (gastroesophageal reflux disease) Hypertension Nonverbal UTI (urinary tract infection) Social History Smoking and tobacco status: never smoked Alcohol intake: never Caregiver/support person: Yes Lives independently: No Household members: family Marital status: Single Number of children: 0 Number of grandchildren: 0 service: No Current occupational status: disabled Vitals/I&O/Wt Last Vital Signs Temp 97.6 F 08/01/21 11:36 Pulse 79 08/01/21 13:25 Resp 16 08/01/21 13:25 BP 161/102 08/01/21 13:25 Pulse Ox 99 08/01/21 13:25 Weight last 48 hrs Weight 190 lb Physical Exam Narrative: Patient is conscious, alert but nonverbal No apparent distress BMI 29 Head and neck examination PERRLA no masses no cervical lymphadenopathy no jaundice Cardiac examination audible S1-S2 no murmurs no gallops no arrhythmias Chest is clear bilateral,abscence of Rhonchi or wheezes,no surgical emphysema Abdomen nontender nondistended soft no organomegaly guarding or rigidity/no signs of peritonitis Extremities no cyanosis no clubbing no edema Data : 08/01/21 13:20 08/01/21 13:20 A&P Assessment and plan (1) Sigmoid volvulus: After limited history taking physical examination and reviewing the chart and images with my personal interpretation further discussing the CT scan with Dr. Gomes our radiologist. There is certainly a concern of sigmoid colon volvulus. There is no pneumatosis or free air or edema. I did discuss further with the family bedside that they came later on that the best approach to perform a flex sigmoidoscopy for potential derotation and placement of rectal tube and to start the colon prep for potential colon resection yet it gets complicated because the patient seemed to have a chronic constipation and likely he may have an underlying colonic inertia that may benefit from a subtotal colectomy with terminal ileostomy and a rectal pouch something that not commonly being done in our facility. AT This point I do recommend highly that the family would take what ever decision suitable for their loved one RELL and what do they think appropriate. There is no evidence of peritonitis and I am also concerned that the patient may have an underlying chronic sigmoid volvulus. But certainly I would offer a flex sigmoidoscopy with potential untwisting of the colon and placement of rectal tube and hopefully to have appropriate colon prep for potential surgical intervention. I had the opportunity to talk with patient's mom as well as the rest of the family and I gave them options and I also explained for them about the importance of sensitivity of time factor as any delay can compromise the blood flow to the sigmoid colon and can perforate and cause peritonitis may end up by exploratory laparotomy and a colostomy. Patient's family decided that they want to be transferred to a place where they have more options and presence of a colorectal service on board in case that further surgical intervention may take place particularly if he ends up by having subtotal colectomy At this point I do highly recommend IV fluid resuscitation start a dose of Zosyn empirically. The plan of care has been agreed upon by the family and I did discuss the case further with Dr. Cruz ER attending and he will be working on transferring the patient. Thank you for consulting general surgery to participate taking care Status: Suspected Consult Attestations Medical Necessity Statement: Patient was seen and evaluated in the ER Coding Level of Care Code Acute Deicer [employer] for [facility] Fwd Diagnoses Sigmoid volvulus K56.2
[2021-08-01] MEDS: cefepime 1,000 MG in sodium chloride 0.9% (plus) 50 ML 100 MG IV (16:16)
[2021-08-01] MEDS: sodium chloride 0.9% 1,000 ML 999 ML IV (16:16)
[2021-08-01] MEDS: sodium chloride 0.9% 1,000 ML 75 ML IV (16:23)
[2021-08-01] MEDS: metroNIDAZOLE IV 500 MG/100 ML PREMIX 100 MG IV (17:25)
[2021-08-01 19:40] VITALS: BP 159/117; PULSE 93; RESP 16; O2SAT 96
== END 2021-08-01 20:04 ==
PROVIDERS: Emergency Provider Emergency Medicine
DX: R10.9 Unspecified abdominal pain (principal); K59.00 Constipation, unspecified; K56.2 Volvulus; F84.0 Autistic disorder; I10 Essential (primary) hypertension
CPT/HCPCS: 74176; 80053; 81003; 83605; 83690; 85025; 96365; 96367; 99284; J0692; J7030; S0030

== ENCOUNTER 2022-01-22 11:31 | Outpatient (CLI) | payer MEDICAID, SELFPAY ==
--- NOTE | 2022-01-22 11:53 | XR_ITS ---
WS: [id number] Abdomen series, Flat and upright 01/22/2022 Clinical Data: constipation Comparison: None. Findings: No free air is seen beneath the diaphragms. No abnormal intra-abdominal masses or calcifica tions are seen. There is a large amount of air in the small bowel and colon but no evidence of obstru ction. XR/XR abdomen min 2V [id number] Impression: Generalized ileus.
== END 2022-01-22 11:32 | disposition home or self-care (01) ==
LOC: RAD 11:35
PROVIDERS: PCP Family Medicine; Visit Provider Family Medicine
DX: K59.00 Constipation, unspecified (principal); K56.7 Ileus, unspecified
CPT/HCPCS: 74019

== ENCOUNTER 2022-04-17 15:30 | Emergency (ER) | payer MEDICAID, SELFPAY ==
[2022-04-17 15:32] VITALS: BP 136/85; PULSE 80; RESP 18; O2SAT 97; BMI 25.0
[2022-04-17 16:34] LABS: Basophils % 0.5 %; Eosinophils # 0.1 10^3/uL (0.0-0.8); Eosinophils % 1.1 %; Hematocrit 49.5 % (42.0-52.0); Hemoglobin 16.5 g/dL (11.7-16.6); Lymphocytes % 23.1 %; Mean Corpuscular HGB Conc 33.3 g/dL (30.0-36.0); Mean Corpuscular Hemoglobin 28.8 pg (28.0-34.0); Mean Corpuscular Volume 86.4 fl (80-94); Monocytes # 0.9 10^3/uL (0.2-0.9); Monocytes % 11.1 %; Neutrophils # 5.42 10^3/uL (1.8-7.7); Neutrophils % 63.8 %; Nucleated Red Blood Cells % 0 %; Platelet Count 249 10^3/cmm (130-400); Red Blood Count 5.73 10^6/uL (4.1-5.3); Red Cell Distribution Width 12.6 % (12.1-15.1); White Blood Count 8.5 10^3/uL (4.0-10.0)
[2022-04-17 16:52] LABS: Alanine Aminotransferase 16 U/L (0-41); Albumin Level 4.4 g/dL (3.5-5.2); Alkaline Phosphatase 75 U/L (40-130); Anion Gap 15.8 (5-19); Aspartate Amino Transferase 16 U/L (0-40); Blood Urea Nitrogen 13 mg/dL (6-20); Calcium 9.4 mg/dL (8.5-10.5); Carbon Dioxide 24 mmol/L (22-29); Chloride 103 mmol/L (98-107); Globulin 2.8 g/dL (1.3-4.6); Glomerular Filtration Rate 160.4 mL/min (90-130); Glucose 95 mg/dL (65-115); Lipase 36 U/L (13-60); Osmolality Calculated 288 mOsm/kg (285-295); Potassium 3.8 mmol/L (3.5-5.1); Sodium 139 mmol/L (136-145); Total Bilirubin 0.3 mg/dL (0.15-1.2); Total Protein 7.2 g/dL (6.6-8.7)
--- NOTE | 2022-04-17 16:58 | CTR_ITS ---
PROCEDURE INFORMATION: Exam: CT Abdomen And Pelvis Without Contrast Exam date and time: 04/17/2022 5:13 PM Age: 27 years old Clinical indication: Abdominal pain; Generalized TECHNIQUE: Imaging protocol: Computed tomography of the abdomen and pelvis without contrast. Radiation optimization: All CT scans at this facility use at least one of these dose optimization techniques: automated exposure control; mA and/or kV adjustment per patient size (includes targeted exams where dose is matched to clinical indication); or iterative reconstruction. REPORTING DATA: Count of CT and Cardiac NM exams in prior 12 months: This patient has received [address] and 0 known cardiac nuclear medicine studies in the 12 months prior to the current study. COMPARISON: CT abdomen pelvis wo con [id number] 08/01/2021 1:49 PM RADIATION DOSE METRICS: Total DLP (mGy-cm): 480.97 FINDINGS: Lungs: Minimal patchy ground-glass infiltrate left lower lobe. Liver: Normal. No mass. Gallbladder and bile ducts: Normal. No calcified stones. No ductal dilation. Pancreas: Normal. No ductal dilation. Spleen: Normal. No splenomegaly. Adrenal glands: Normal. No mass. Kidneys and ureters: Normal. No hydronephrosis. Stomach and bowel: Stool throughout the colon suggests constipation. No bowel obstruction. Appendix: No evidence of appendicitis. Intraperitoneal space: Unremarkable. No free air. No significant fluid collection. Vasculature: Unremarkable. No abdominal aortic aneurysm. Lymph nodes: Unremarkable. No enlarged lymph nodes. Urinary bladder: Unremarkable as visualized. Reproductive: Unremarkable as visualized. Bones/joints: Unremarkable. No acute fracture. Soft tissues: Unremarkable. CT/CT abdomen pelvis con [id number] IMPRESSION: 1. Minimal patchy ground-glass infiltrate left lower lobe. Correlate for pneumonia. 2. Stool throughout the colon suggests constipation. No bowel obstruction.
--- NOTE | 2022-04-17 16:59 | ED_ITS ---
HPI - General Adult General: Chief complaint: General Medical Stated complaint: abd pain Time Seen by Provider: 04/17/22 16:45 Source: family Mode of arrival: ambulatory History of Present Illness: 27-year-old male presents emergency room with complaints of abdominal discomfort. Patient is severely autistic and is nonverbal. He has had several episodes of diarrhea no hematochezia melena hematemesis or coffee-ground emesis he also vomited several times. He does have chronic vomiting and diarrhea and recently they had thought he had a viral gastroenteritis. Mom is concerned because he had several episodes of bowel obstruction in the past. Onset (ago): day(s) Location: abdomen Relieving factors: none Exacerbating factors: none Associated symptoms: Reports decreased appetite and vomiting Treatments prior to arrival: none Review of Systems General: Reports: ROS unobtainable due to medical condition GI: Reports: vomiting PFSH ED PFSH: Medical History Autism Bipolar disorder, in partial remission, most recent episode manic Eustachian tube dysfunction GERD (gastroesophageal reflux disease) Hypertension Nonverbal UTI (urinary tract infection) Social History Smoking and tobacco status: never smoked Alcohol intake: never Caregiver/support person: Yes Lives independently: No Household members: family Marital status: Single Number of children: 0 Number of grandchildren: 0 service: No Current occupational status: disabled Physical Exam Const: GENERAL APPEARANCE: cooperative and comfortable HENMT: COMMON NORMALS: normocephalic, atraumatic and hearing grossly normal bilaterally HEAD & SCALP: normocephalic and atraumatic Resp: COMMON NORMALS: normal respiratory effort, No retractions, No use of accessory muscles and clear to auscultation bilaterally AUSCULTATION: clear to auscultation bilaterally Cardio: COMMON NORMALS: regular rate, regular rhythm and No murmurs present (Cardio) RATE: regular rate RHYTHM: regular rhythm GI: COMMON NORMALS: Soft to palpation and No hepatosplenomegaly present AUSCULTATION: Yes normoactive bowel sounds PALPATION: Yes Soft to palpation, No Tenderness to palpation present (GI), No Guarding due to palpation present (GI) and Yes No hepatosplenomegaly present Extremity: COMMON NORMALS: normal to inspection, capillary refill normal, no clubbing, cyanosis or edema, no calf tenderness and no pedal edema Skin: COMMON NORMALS: no rashes or lesions noted GENERAL SKIN EXAM: no rashes or lesions noted Course Vital Signs: Vital signs: Vital Signs Pulse Rate 80 04/17/22 18:34 Respiratory Rate 18 04/17/22 18:34 Blood Pressure 136/85 04/17/22 18:34 Pulse Oximetry 97 04/17/22 18:34 Oxygen Delivery Me thod 04/17/22 15:32 MDM - General Adult Medical Decision Making Labs imaging reviewed. CT shows diffuse constipation normal white count. No evidence of obstruction on either exam or imaging. Recommend limited use of stimulants such as lactulose. Continue the MiraLAX and Dulcolax follow-up primary care return if is further problems. Medical Records I reviewed the patient's medical records. Lab Data I reviewed the patient's lab results. 04/17/22 16:15 04/17/22 16:15 Radiology Impressions Abdomen/Pelvis CT 04/17/22 16:58 IMPRESSION: 1. Minimal patchy ground-glass infiltrate left lower lobe. Correlate for pneumonia. 2. Stool throughout the colon suggests constipation. No bowel obstruction. Laboratory Results WBC 8.5 10^3/uL (4.0-10.0) 04/17/22 16:15 RBC 5.73 10^6/uL (4.1-5.3) H 04/17/22 16:15 Hgb 16.5 g/dL (11.7-16.6) 04/17/22 16:15 Hct 49.5 % (42.0-52.0) 04/17/22 16:15 MCV 86.4 fl (80-94) 04/17/22 16:15 MCH 28.8 pg (28.0-34.0) 04/17/22 16:15 MCHC 33.3 g/dL (30.0-36.0) 04/17/22 16:15 RDW 12.6 % (12.1-15.1) 04/17/22 16:15 Plt Count 249 10^3/cmm (130-400) 04/17/22 16:15 MPV 10.0 fL (7.4-10.4) 04/17/22 16:15 Neut % (Auto) 63.8 % 04/17/22 16:15 Lymph % (Auto) 23.1 % 04/17/22 16:15 [place] % (Auto) 11.1 % 04/17/22 16:15 Eos % (Auto) 1.1 % 04/17/22 16:15 Baso % (Auto) 0.5 % 04/17/22 16:15 Neut # (Auto) 5.42 10^3/uL (1.8-7.7) 04/17/22 16:15 Lymph # (Auto) 2.0 10^3/uL (0.8-4.8) 04/17/22 16:15 [place] # (Auto) 0.9 10^3/uL (0.2-0.9) 04/17/22 16:15 Eos # (Auto) 0.1 10^3/uL (0.0-0.8) 04/17/22 16:15 Baso # (Auto) 0.0 10^3/uL (0.0-0.1) 04/17/22 16:15 Nucleated RBC % (auto) 0 % 04/17/22 16:15 Nucleated RBCs # 0.0 /100WBC 04/17/22 16:15 Sodium 139 mmol/L (136-145) 04/17/22 16:15 Potassium 3.8 mmol/L (3.5-5.1) 04/17/22 16:15 Chloride 103 mmol/L (98-107) 04/17/22 16:15 Carbon Dioxide 24 mmol/L (22-29) 04/17/22 16:15 Anion Gap 15.8 (5-19) 04/17/22 16:15 BUN 13 mg/dL (6-20) 04/17/22 16:15 Creatinine 0.6 mg/dL (0.7-1.2) L 04/17/22 16:15 GFR Calculation 160.4 mL/min (90-130) H 04/17/22 16:15 Glucose 95 mg/dL (65-115) 04/17/22 16:15 Calculated Osmolality 288 mOsm/kg (285-295) 04/17/22 16:15 Lactic Acid 1.1 mmol/L (0.5-2.2) 04/17/22 16:15 Calcium 9.4 mg/dL (8.5-10.5) 04/17/22 16:15 Total Bilirubin 0.3 mg/dL (0.15-1.2) 04/17/22 16:15 AST 16 U/L (0-40) 04/17/22 16:15 ALT 16 U/L (0-41) 04/17/22 16:15 Alkaline Phosphatase 75 U/L (40-130) 04/17/22 16:15 Total Protein 7.2 g/dL (6.6-8.7) 04/17/22 16:15 Albumin 4.4 g/dL (3.5-5.2) 04/17/22 16:15 Globulin 2.8 g/dL (1.3-4.6) 04/17/22 16:15 Lipase 36 U/L (13-60) 04/17/22 16:15 Carbamazepine 2.0 ug/mL (4.0-12.0) L 04/17/22 16:15 [place] 0.1 mmol/L (0.6-1.2) L 04/17/22 16:15 Discharge Plan Discharge Patient Disposition: Home Clinical Impression: Constipation, Autism Condition: Stable Prescriptions: No Action cetirizine-pseudoephedrine 5-120 mg tablet extended release 12 hr 1 tab PO BID Qty: 60 5RF docusate sodium [Colace] 100 mg capsule 100 mg PO BID Qty: 180 3RF [place] Enema 19-7 gram/118 mL enema 118 ml [place] DAILY 30 Days Qty: 1197 3RF Rx Instructions: use every 3 days prn for bm's fluticasone propionate 50 mcg/actuation spray,suspension 2 spray intranasal DAILY Qty: 16 1RF Rx Instructions: administer into each nostril lithium carbonate 300 mg tablet 300 mg PO TID 30 Days Qty: 90 0RF chlorpromazine 100 mg tablet See Rx Instructions PO TID Qty: 105 1RF Rx Instructions: 1 tablet in the morning; 1 tablet at 2pm, and 1.5 tablet at night. PO three times daily; polyethylene glycol 3350 [Miralax] 17 gram powder in packet 17 g PO DAILY Qty: 100 3RF aripiprazole 5 mg tablet See Rx Instructions .ROUTE .COMPLEX Qty: 60 5RF Dose Instruction: TAKE 1 TABLET BY MOUTH TWICE DAILY FOR autism Rx Instructions: TAKE 1 TABLET BY MOUTH TWICE DAILY FOR autism Vitamin D3 50 mcg (2,000 unit) Capsule 50 mcg PO .2 TIMES A WEEK Equetro 200 mg Capsule, Er Multiphase 12 Hr 200 mg PO BID clonidine HCl 0.1 mg tablet 0.3 mg PO TID PRN (Reason: hypertensive emergency) omeprazole 20 mg capsule,delayed release(DR/EC) 20 mg PO BID Discharge Orders: Discharge ED (Routine); Ordered 04/17/22 Ordered By: Cesar Parrish Referrals: Real Cain DO [Primary Care Provider] - Discharge Diet: Clear Liquid Discharge Activity: Increase activity as tolerated Patient Instructions: Opioid Safety, Pain Management Activity Restrictions/Additional Instructions: You are seen today for abdominal discomfort. CT and exam show no sign of bowel obstruction there is a large amount of retained stool reflecting constipation. Recommend use lactulose every 2-4 hours until desired result is achieved. The remainder of your labs white count electrolytes were normal as well. 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
[2022-04-17 17:19] LABS: Lactic Sepsis W/Reflex 1.1 mmol/L (0.5-2.2)
[2022-04-17 17:20] LABS: Lithium 0.1 mmol/L (0.6-1.2)
[2022-04-17] MEDS: sodium chloride 0.9% 1,000 ML 999 ML IV (17:52)
[2022-04-17 18:34] VITALS: BP 136/85; PULSE 80; RESP 18; O2SAT 97
== END 2022-04-17 18:36 | disposition home or self-care (01) ==
PROVIDERS: Physician Assistant; Emergency Provider Family Medicine; PCP Family Medicine
DX: K59.00 Constipation, unspecified (principal); F84.0 Autistic disorder; I10 Essential (primary) hypertension
CPT/HCPCS: 36415; 74176; 80053; 80156; 80178; 83605; 83690; 85025; 96360; 99285; J7030

== ENCOUNTER 2022-10-31 09:04 | Emergency (ER) | payer MEDICAID, SELFPAY ==
[2022-10-31 09:09] VITALS: BP 149/82; PULSE 61; RESP 16; TEMP 36.5; O2SAT 99; BMI 24.3
--- NOTE | 2022-10-31 09:22 | W.ED.NAVMDI ---
HPI - Nausea/Vomiting/Diarrhea General: Chief complaint: Abdominal Pain Stated complaint: NV Time Seen by Provider: 10/31/22 09:05 Source: family (mother) Mode of arrival: ambulatory Limitations: other (non-verbal/austic ) History of Present Illness: Patient is a 27-year-old non-verbal autistic male here with his mother for concerns of vomiting. Mother states that vomiting began yesterday evening. Mother states that patient will often behavioral vomit and even will sometimes use his finger to gag himself and throw up however she states this seems to be different. She states he seems nauseous as any time he tries to eat/drink anything he immediately heads to the bathroom to vomit. She states he does not seemingly seem to be in any form of discomfort. When asked about bowel movements mother tells me that patient often alternates between constipation and diarrhea. He has chronic constipation in which they try to combat with Colace, MiraLAX, and mineral enemas prn. She states bowel movements have seemingly been normal for him. Mother states she is concerned for dehydration as this could worsen patient's chronic constipation. Mother has not noticed any fevers however states this morning the patient's bed sheets were wet from sweat. Upon arrival to the ED he appears in no acute distress. Vital signs are stable. MD elicited complaint: nausea, vomiting, diarrhea and other (constipation) Onset (ago): day(s) (yesterday) Associated nausea: Yes Exacerbating factors: eating Associated symtoms: Reports nausea; Denies fatigue or syncope Review of Systems General: Reports: ROS unobtainable due to medical condition (pt is non-verbal; mother performs HPI/ROS) Const: Reports: night sweats (last night); Denies: fever(s) or fatigue Eyes: Denies: eye discharge or eye redness ENMT: Denies: nasal discharge or nasal congestion Card: Denies: syncope or pre-syncope Resp: Denies: dyspnea, productive cough, non-productive cough, wheezing or hemoptysis GI: Reports: nausea, vomiting, diarrhea and constipation; Denies: hematemesis : Reports: other (no change in urine output) Skin/Breast: Denies: rash Neuro: Reports: other (mental status at baseline) [facility] ED PFSH: Medical History Autism Bipolar disorder, in partial remission, most recent episode manic Eustachian tube dysfunction GERD (gastroesophageal reflux disease) Hypertension Nonverbal UTI (urinary tract infection) Social History Smoking and tobacco status: never smoked Alcohol intake: never Substance/Drug Use: never Caregiver/support person: Yes Lives independently: No Household members: family Marital status: Single Number of children: 0 Number of grandchildren: 0 service: No Current occupational status: disabled Physical Exam Const: COMMON NORMALS: no acute distress and alert EXAM LIMITATIONS: other limitations (non-verbal, severely autistic ) GENERAL APPEARANCE: cooperative ORIENTATION/CONSCIOUSNESS: Yes awake HENMT: COMMON NORMALS: normocephalic and atraumatic HEAD & SCALP: normal to inspection, normocephalic and atraumatic FACE & SINUS: normal facial exam Eye: COMMON NORMALS: no scleral icterus Neck/C-Spine: COMMON NORMALS: no lymphadenopathy Resp: COMMON NORMALS: normal respiratory effort and clear to auscultation bilaterally AUSCULTATION: clear to auscultation bilaterally Cardio: COMMON NORMALS: regular rate and regular rhythm RATE: regular rate RHYTHM: regular rhythm GI: COMMON NORMALS: Normal to inspection, nondistended, normoactive bowel sounds present, Soft to palpation, non-tender, No hepatosplenomegaly present and no masses INSPECTION: Yes normal to inspection AUSCULTATION: Yes normoactive bowel sounds PALPATION: Yes Soft to palpation, No Guarding due to palpation present (GI), No Rigid due to palpation and Yes No hepatosplenomegaly present OTHER: patient is not able to verbalize pain but he does not seem to be in any discomfort with abdominal palpation Extremity: GENERAL: Yes normal exam except as noted Neuro: SENSORIUM/ORIENTATION: Yes alert Skin: COMMON NORMALS: no rashes or lesions noted GENERAL SKIN EXAM: no rashes or lesions noted Course Vital Signs: Vital signs: Vital Signs Temperature 97.7 F 10/31/22 09:09 Pulse Rate 65 10/31/22 10:20 Respiratory Rate 15 10/31/22 10:20 Blood Pressure 130/84 10/31/22 10:20 Pulse Oximetry 98 10/31/22 10:20 Oxygen Delivery Me thod Room Air 10/31/22 10:20 MDM - Nausea/Vomiting/Diarrhea Medical Decision Making Patient was given fluids as well as Zofran here. He completed successful oral/liquid challenge and has not had any further episodes of vomiting. Vital signs are stable. Blood work is unremarkable. Mother feels comfortable taking him home at this time. XR showing no obstructive pattern. Lab Data 10/31/22 09:26 10/31/22 09:26 Radiology Impressions Abdomen X-Ray 10/31/22 09:27 IMPRESSION: No acute findings. Laboratory Results WBC 4.93 10^3/uL (3.29-11.43) 10/31/22 09:26 RBC 5.52 10^6/uL (3.85-5.65) 10/31/22 09:26 Hgb 16.00 g/dL (11.27-16.99) 10/31/22 09: Hct 48.3 % (37-53) 10/31/22 09: MCV 87.5 fl (82-101) 10/31/22 09: MCH 29.0 pg (27-33) 10/31/22 09: MCHC 33.1 g/dL (30-55) 10/31/22 09:26 RDW 12.0 % (12.1-15.1) L 10/31/22 09: Plt Count 199 10^3/cmm (157-399) 10/31/22 09: MPV 9.8 fL (7.4-10.4) 10/31/22 09: Neut % (Auto) 45.5 % 10/31/22 09: Lymph % (Auto) 38.1 % 10/31/22 09:26 [place] % (Auto) 13.2 % 10/31/22 09:26 Eos % (Auto) 2.0 % 10/31/22 09: Baso % (Auto) 0.8 % 10/31/22 09: Neut # (Auto) 2.24 10^3/uL (1.8-7.7) 10/31/22 09:26 Lymph # (Auto) 1.9 10^3/uL (0.8-4.8) 10/31/22 09:26 [place] # (Auto) 0.7 10^3/uL (0.2-0.9) 10/31/22 09:26 Eos # (Auto) 0.1 10^3/uL (0.0-0.8) 10/31/22 09:26 Baso # (Auto) 0.0 10^3/uL (0.0-0.1) 10/31/22 09:26 Nucleated RBC % (auto) 0 % 10/31/22 09:26 Nucleated RBCs # 0.0 /100WBC 10/31/22 09:26 Sodium 140 mmol/L (136-145) 10/31/22 09:26 Potassium 4.1 mmol/L (3.5-5.1) 10/31/22 09:26 Chloride 103 mmol/L (98-107) 10/31/22 09:26 Carbon Dioxide 28 mmol/L (22-29) 10/31/22 09:26 Anion Gap 13.1 (5-19) 10/31/22 09:26 BUN 8 mg/dL (6-20) 10/31/22 09:26 Creatinine 0.6 mg/dL (0.7-1.2) L 10/31/22 09:26 GFR Calculation 160.4 mL/min (90-130) H 10/31/22 09:26 Glucose 87 mg/dL (65-115) 10/31/22 09:26 Calculated Osmolality 288 mOsm/kg (285-295) 10/31/22 09:26 Calcium 9.5 mg/dL (8.5-10.5) 10/31/22 09:26 Total Bilirubin 0.6 mg/dL (0.15-1.2) 10/31/22 09:26 AST 17 U/L (0-40) 10/31/22 09:26 ALT 16 U/L (0-41) 10/31/22 09:26 Alkaline Phosphatase 80 U/L (40-130) 10/31/22 09:26 Total Protein 7.4 g/dL (6.6-8.7) 10/31/22 09:26 Albumin 4.8 g/dL (3.5-5.2) 10/31/22 09:26 Globulin 2.6 g/dL (1.3-4.6) 10/31/22 09:26 Urine Color Colorless (Yellow) 10/31/22 11:01 Urine Appearance Clear (CLEAR) 10/31/22 11:01 Urine pH 7 (5-7) 10/31/22 11:01 Ur Specific [place] 1.000 (1.005-1.030) L 10/31/22 11:01 Urine Protein Neg (Negative) 10/31/22 11:01 Urine Glucose (UA) Norm (Normal) 10/31/22 11:01 Urine Ketones Negative (Negative) 10/31/22 11:01 Urine Blood Neg (Negative) 10/31/22 11:01 Urine Nitrate Negative (Negative) 10/31/22 11:01 Urine Bilirubin Neg (Negative) 10/31/22 11:01 Urine Urobilinogen Norm mg/dL (Negative) 10/31/22 11:01 Ur Leukocyte Esterase Negative (Negative) 10/31/22 11:01 All radiology interpretation(s) finalized by discharge Discharge Plan Discharge Patient Disposition: Home Clinical Impression: Nausea and vomiting Qualifiers: Vomiting type: unspecified Qualified Code(s): R11.2 - Nausea with vomiting, unspecified Condition: Stable Prescriptions: New ondansetron HCl 4 mg/5 mL solution 4 mg PO Q6H PRN (Reason: nausea and vomiting) Qty: 50 0RF No Action docusate sodium [Colace] 100 mg capsule 100 mg PO BID Qty: 180 3RF risperidone [Risperdal] 1 mg/mL solution 0.5 mg PO BID Qty: 30 5RF Discharge Orders: Discharge ED (Routine); Ordered 10/31/22 Ordered By: Janine Huntley Referrals: Real Cain, DO [Primary Care Provider] - Activity Restrictions/Additional Instructions: As we discussed you may use the liquid Zofran as needed for nausea and vomiting. You may return to the emergency department at any time for continued episodes of vomiting, any changes in his mental status or abnormal behaviors that would indicate him not feeling well, fevers greater than 100.4, seemingly feeling unwell, or any other concerns you may have. I hope he begins to feel better soon. 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
--- NOTE | 2022-10-31 09:27 | XRR_ITS ---
PROCEDURE INFORMATION: Exam: XR Abdomen Exam date and time: 10/31/2022 9:43 AM Age: 27 years old Clinical indication: Constipation and vomiting; Additional info: Vomiting, chronic constipation TECHNIQUE: Imaging protocol: Radiologic exam of the abdomen. Views: 2 Views. Upright and supine views. COMPARISON: CT abdomen pelvis con [id number] 04/17/2022 5:13 PM FINDINGS: Lungs: Lung bases are clear. Gastrointestinal tract: Normal. No bowel dilation. Intraperitoneal space: Normal. No free air. Stable calcifications left lower pelvis believed to represent phleboliths. Bones/joints: Unremarkable for age. XR/XR abdomen min 2V [id number] IMPRESSION: No acute findings.
[2022-10-31 09:34] LABS: Basophils % 0.8 %; Eosinophils # 0.1 10^3/uL (0.0-0.8); Hematocrit 48.3 % (37-53); Lymphocytes # 1.9 10^3/uL (0.8-4.8); Lymphocytes % 38.1 %; Mean Corpuscular HGB Conc 33.1 g/dL (30-55); Mean Corpuscular Volume 87.5 fl (82-101); Mean Platelet Volume 9.8 fL (7.4-10.4); Monocytes # 0.7 10^3/uL (0.2-0.9); Monocytes % 13.2 %; Neutrophils # 2.24 10^3/uL (1.8-7.7); Neutrophils % 45.5 %; Nucleated Red Blood Cells % 0 %; Platelet Count 199 10^3/cmm (157-399); Red Blood Count 5.52 10^6/uL (3.85-5.65); White Blood Count 4.93 10^3/uL (3.29-11.43)
[2022-10-31] MEDS: sodium chloride 0.9% 1,000 ML 999 ML IV (09:35)
[2022-10-31] MEDS: ondansetron 2 mg/ML SDV 2 mL 4 MG IVP (09:35)
--- NOTE | 2022-10-31 09:35 | PC.PHAR ---
GUARDIAN STATES PT IS ONLY TAKING RISPERIDONE 0.5 MG TWICE DAILY AND DOCUSATE 100 MG TWICE DAILY.
[2022-10-31 09:42] VITALS: BP 135/82; PULSE 67; RESP 16; O2SAT 97
[2022-10-31 09:57] LABS: Alanine Aminotransferase 16 U/L (0-41); Albumin Level 4.8 g/dL (3.5-5.2); Alkaline Phosphatase 80 U/L (40-130); Anion Gap 13.1 (5-19); Aspartate Amino Transferase 17 U/L (0-40); Blood Urea Nitrogen 8 mg/dL (6-20); Calcium 9.5 mg/dL (8.5-10.5); Carbon Dioxide 28 mmol/L (22-29); Chloride 103 mmol/L (98-107); Globulin 2.6 g/dL (1.3-4.6); Glomerular Filtration Rate 160.4 mL/min (90-130); Glucose 87 mg/dL (65-115); Osmolality Calculated 288 mOsm/kg (285-295); Potassium 4.1 mmol/L (3.5-5.1); Sodium 140 mmol/L (136-145); Total Bilirubin 0.6 mg/dL (0.15-1.2); Total Protein 7.4 g/dL (6.6-8.7)
[2022-10-31 10:20] VITALS: BP 130/84; PULSE 65; RESP 15; O2SAT 98
[2022-10-31 11:07] LABS: Add Urine Microscopic? NO; Charge for UA Resulting for Rev
[2022-10-31 11:19] LABS: Bilirubin Urine Neg (Negative); Blood Urine Neg (Negative); Glucose Urine UA Norm (Normal); Ketones Urine Negative (Negative); Leukocyte Esterase Urine Negative (Negative); Nitrate Urine Negative (Negative); Protein Urine Neg (Negative); Urine Appearance Clear (CLEAR); Urine Color Colorless (Yellow); Urobilinogen Urine Norm (Negative); pH Urine 7 (5-7)
[2022-10-31 12:02] VITALS: BP 130/84; PULSE 65; RESP 15; O2SAT 98
== END 2022-10-31 12:03 | disposition home or self-care (01) ==
PROVIDERS: Emergency Provider Physician Assistant; PCP Family Medicine
DX: R11.2 Nausea with vomiting, unspecified (principal); F84.0 Autistic disorder; I10 Essential (primary) hypertension
CPT/HCPCS: 74019; 80053; 81003; 85025; 96361; 96374; 99284; J2405; J7030

== ENCOUNTER 2025-01-12 17:07 | Outpatient (CLI) | payer OTHER, MEDICAID, SELFPAY ==
--- NOTE | 2025-01-12 17:15 | CT_ITS ---
WS: [id number] CT HEAD NONCONTRAST HISTORY: F84.0 - Autistic disorder, bump on the posterior head. TECHNIQUE: Contiguous axial imaging performed through the brain. Bone and soft tissue windows. Sagittal and coronal reformats reviewed. All CT scans at [facility] use at least one of these dose optimization techniques: automated exposure control; mA and/or kV adjustment per patient size (includes targeted exams where dose is matched to clinical indication); or iterative reconstruction. DLP: 1217.14 mGy.cm COMPARISON: None available. No acute intracranial hemorrhage, midline shift or mass effect. No atrophy or prior infarcts or herniation. Tiny lacunar infarct versus perivascular space posterior LEFT temporal lobe. No acute intracranial edema or hemorrhage. Ventricles: Normal size with no hydrocephalus. Paranasal sinuses: As visualized are clear. Mastoid air cells: Well pneumatized. Calvarium and scalp: Skull is intact with no soft tissue edema or swelling. Prominent external occipital protuberance corresponds to the palpable nodule. CT/CT head wo con* [id number] IMPRESSION: 1. No acute intracranial hemorrhage or edema. 2. No significant atrophy. 3. No skull fracture. 4. Prominence on the posterior occiput corresponds to an inion. This is the ti p of the external occipital protuberance.
== END 2025-01-12 17:08 | disposition home or self-care (01) ==
LOC: RAD 17:08
PROVIDERS: PCP Family Medicine; Visit Provider Family Medicine
DX: F84.0 Autistic disorder (principal); R22.0 Localized swelling, mass and lump, head
CPT/HCPCS: 70450